=== PATIENT | female | born 1945 | race Two or more races ===

== ENCOUNTER 2018-05-31 22:56 | Inpatient (IN) | payer OTHER ==
[~2018-05-31] VITALS: Ht 157.5 cm; Wt 76.2 kg
[2018-05-31] MEDS ORDERED: Acetaminophen 500mg (ES) tab ORAL ONE (23:15)
--- NOTE | 2018-05-31 23:27 | Emergency Room Report ---
History of Present Illness General Chief Complaint: Chest Pain Source: Patient Present Illness HPI This 73-year-old female with history of high blood pressure. She presents with chief complaint of chest pain and body pain. Also with shaking. Onset for last few hours. Family called 911. They gave her aspirin and nitroglycerin without much relief. Patient does have a cough. Pain is all over. Achy in nature. Didn't complain of fever also. No nausea no vomiting. No diaphoresis. [place] like this may be a reaction to her medication. Allergies: Coded Allergies: No Known Allergies (Unverified , 05/31/18) Patient History Past Medical History: see triage record, old chart reviewed, HTN Past Surgical History: other Pertinent Family History: none Social History: Denies: smoking Now: No Immunizations: other Reviewed Nursing Documentation: PMH: Agreed; PSxH: Agreed Nursing Documentation-PMH Past Medical History: No History, Except For Hx Hypertension: Yes Review of Systems Constitutional: Reports: fever, weakness Eye: Denies: eye pain, blurred vision ENT: Denies: ear pain, nose congestion, throat swelling Respiratory: Reports: cough; Denies: shortness of breath Cardiovascular: Denies: chest pain, palpitations Gastrointestinal: Denies: abdominal pain, diarrhea, nausea, vomiting Musculoskeletal: Reports: joint pain, muscle pain; Denies: back pain Skin: Denies: rash Neurological: Denies: headache, numbness Endocrine: Denies: increased thirst, increased urine Hematologic/Lymphatic: Denies: easy bruising All Other Systems: negative except mentioned in HPI Physical Exam Vital Signs Date Time Temp Pulse Resp B/P (MAP) Pulse Ox O2 Delivery O2 Flow Rate FiO2 05/31/18 22:58 101.7 124 18 180/102 99 Room Air patient with fever and high blood pressure Sp02 EP Interpretation: reviewed, normal General Appearance: well appearing, no apparent distress, alert Head: normocephalic, atraumatic Eyes: bilateral eye PERRL, bilateral eye EOMI ENT: hearing grossly normal, normal pharynx Neck: full range of motion, supple, no meningismus Respiratory: chest non-tender, lungs clear, normal breath sounds Cardiovascular #1: regular rate, rhythm, no murmur Gastrointestinal: normal bowel sounds, non tender, no mass, no organomegaly, no bruit, non-distended Musculoskeletal: back normal, gait/station normal, normal range of motion Neurologic: alert, oriented x3 Psychiatric: anxious Skin: warm/dry Medical Decision Making Diagnostic Impression: Primary Impression: Chest pain Qualified Codes: R07.9 - Chest pain, unspecified Additional Impressions: Sepsis Qualified Codes: A41.9 - Sepsis, unspecified organism UTI (urinary tract infection) Qualified Codes: N30.00 - Acute cystitis without hematuria Anemia Qualified Codes: D64.9 - Anemia, unspecified ER Course Patient presents with chest pain. Atypical in nature. She does have risk factor with her age and high blood pressure. EKG is abnormal. Fever is probably secondary to UTI with possible sepsis. Antibiotics given. Will admit for further workup. I discussed the case with Dr. Kumar who will admit for Dr. Neri. Lab Results Impression labs unremarkable EKG Diagnostic Results Rate: tachycardiac Rhythm: NSR ST Segments: other - NSST changes Rhythm Strip Diag. Results Rhythm Strip Time: 23:27 EP Interpretation: yes Rate: 100 Rhythm: NSR, no PVC's, no ectopy Chest X-Ray Diagnostic Results Chest X-Ray Diagnostic Results : Chest X-Ray Ordered: Yes # of Views/Limited/Complete: 1 View Indication: Chest Pain EP Interpretation: Yes Interpretation: no consolidation, no effusion, no pneumothorax, no acute cardiopulmonary disease Impression: No acute disease Electronically Signed by: Dave Man MD Last Vital Signs Date Time Temp Pulse Resp B/P (MAP) Pulse Ox O2 Delivery O2 Flow Rate FiO2 05/31/18 22:58 101.7 124 18 180/102 99 Room Air Status: improved Disposition: ADMITTED INPATIENT Condition: Serious Scripts Unable to Obtain Active Prescriptions or Reported Meds Dave Man MD May 31, 2018 23:27
[2018-05-31 23:35] LABS: HEMATOCRIT 33.5 % (37.0-47.0); HEMOGLOBIN 11.1 G/DL (12.0-16.0); MEAN CORPUSCULAR VOLUME 75 FL (80-99); PLATELET COUNT 33 K/UL (150-450); RED BLOOD COUNT 4.45 M/UL (4.20-5.40); RED CELL DISTRIBUTION WIDTH 16.1 % (11.6-14.8); WHITE BLOOD COUNT 5.9 K/UL (4.8-10.8)
[2018-05-31 23:44] LABS: APPEARANCE,URINE CLEAR; BILIRUBIN, URINE NEGATIVE (NEGATIVE); COLOR,URINE PALE YELLOW; GLUCOSE, URINE (UA) NEGATIVE (NEGATIVE); KETONES,URINE NEGATIVE (NEGATIVE); LEUKOCYTE ESTERASE ,URINE 1+ (NEGATIVE); NITRITE,URINE NEGATIVE (NEGATIVE); PH,URINE 7 (4.5-8.0); PROTEIN,URINE NEGATIVE (NEGATIVE); UROBILINOGEN,URINE NORMAL MG/DL (0.0-1.0)
[2018-05-31 23:46] LABS: ANION GAP 10 mmol/L (5-15); BLOOD UREA NITROGEN 19 mg/dL (7-18); CALCIUM 9.7 MG/DL (8.5-10.1); CARBON DIOXIDE 24 MMOL/L (21-32); CHLORIDE 101 MMOL/L (98-107); CREATININE 0.9 MG/DL (0.55-1.30); POTASSIUM 4.5 MMOL/L (3.5-5.1); SODIUM 135 MMOL/L (136-145)
[2018-05-31 23:51] VITALS: BP 140/85
[2018-05-31 23:59] LABS: ALANINE AMINOTRANSFERASE 22 U/L (12-78); ALBUMIN 3.8 G/DL (3.4-5.0); ALBUMIN/GLOBULIN RATIO 0.9 (1.0-2.7); ALKALINE PHOSPHATASE 100 U/L (46-116); ASPARTATE AMINO TRANSFERASE 45 U/L (15-37); CKMB 0.9 NG/ML (0.0-3.6); CREATINE KINASE 138 U/L (26-308)
[2018-06-01] VITALS (7 sets, daily range): BP systolic 102–144; BP diastolic 55–85
[2018-06-01] MEDS ORDERED: cefTRIAXone 1 GM in NS 55 ML IVPB ONE ×2
[2018-06-01 05:00] LABS: HEMATOCRIT 32.5 % (37.0-47.0); HEMOGLOBIN 10.7 G/DL (12.0-16.0); MEAN CORPUSCULAR VOLUME 76 FL (80-99); RED BLOOD COUNT 4.25 M/UL (4.20-5.40); RED CELL DISTRIBUTION WIDTH 16.6 % (11.6-14.8)
[2018-06-01 05:16] LABS: ANION GAP 9 mmol/L (5-15); BLOOD UREA NITROGEN 14 mg/dL (7-18); CALCIUM 8.8 MG/DL (8.5-10.1); CARBON DIOXIDE 24 MMOL/L (21-32); CHLORIDE 107 MMOL/L (98-107); CREATININE 0.8 MG/DL (0.55-1.30); POTASSIUM 3.4 MMOL/L (3.5-5.1); SODIUM 140 MMOL/L (136-145)
[2018-06-01 05:29] LABS: PLATELET COUNT 220 K/UL (150-450)
--- NOTE | 2018-06-01 05:39 | Diagnostic Imaging Report ---
PORTABLE AP CXR: HISTORY: 73-year-old female with SOB. COMPARISON: None. FINDINGS: The lungs are grossly clear, allowing for technique. Heart size is within normal limits. No abnormal mediastinal widening. No obvious pneumothorax or effusion. Bones and chest wall soft tissues are grossly unremarkable. IMPRESSION: No acute abnormality identified.
--- NOTE | 2018-06-01 08:17 | History and Physical ---
History of Present Illness General Date patient seen: Jun 01, 2018 Time patient seen: 08:10 Reason for Hospitalization: Chest Pain Present Illness HPI Mr Rodriguez is a very pleasant 73 yo female with h/o htn, hld, gerd who presents with subjective fevers/headache/chest pain and dysuria. Patient was noted to have a uti in the ED and admitted for further management. Patient states she is feeling very weak. This started 2 days ago and has been getting worse. Denies any diarrhea/constipation. States chest pain is substernal, nonradiating, 3/10 in severity, denies sob or coughs. social hx: reviewed, denies smoking, alcohol or drug use. code status reviewed: FULL CODE med rec reviewed with patient and resumed during hospital stay Allergies: Coded Allergies: No Known Allergies (Unverified , 05/31/18) Medication History Unable to Obtain Active Prescriptions or Reported Meds Patient History History Provided By: Patient Healthcare decision maker Resuscitation status Full Code Advanced Directive on File No Family History Family History: Patient reports no known family medical history. Review of Systems Constitutional: Reports: chills, fever; Denies: no symptoms, see HPI, sweats, malaise, weakness, other Eye: Denies: no symptoms, see HPI, eye pain, blurred vision, tearing, double vision, nose pain, nose congestion, acuity changes, discharge, other ENT: Denies: no symptoms, see HPI, ear pain, ear discharge, nose pain, nose congestion, throat pain, throat swelling, mouth pain, hearing loss, nasal discharge, other Respiratory: Denies: no symptoms, see HPI, cough, orthopnea, shortness of breath, stridor, wheezing, GALO, sputum, other Cardiovascular: Reports: chest pain; Denies: no symptoms, see HPI, edema, palpitations, syncope, PND, other Gastrointestinal: Denies: no symptoms, see HPI, abdominal pain, constipation, diarrhea, nausea, vomiting, melena, hematemesis, other Genitourinary: Reports: dysuria, frequency; Denies: no symptoms, see HPI, discharge, hematuria, pain, retention, incontinence, urgency, vag bleed/dc, other Musculoskeletal: Denies: no symptoms, see HPI, back pain, gout, joint pain, joint swelling, muscle pain, muscle stiffness, other Skin: Denies: no symptoms, see HPI, rash, change in color, change in hair/nails , dryness, lesions, other Psychiatric: Denies: no symptoms, see HPI, prior hx, anxiety, depressed feelings, emotional problems, SI, HI, hallucinations, other Neurological: Reports: headache; Denies: no symptoms, see HPI, numbness, paresthesia, seizure, tingling, tremors, focal weakness, syncope, dizziness, other Endocrine: Denies: no symptoms, see HPI, excessive sweating, flushing, intolerance to temperature, increased thirst, increased urine, unexplained weight loss, other Hematologic/Lymphatic: Denies: no symptoms, see HPI, anemia, blood clots, easy bleeding, easy bruising, swollen glands, diathesis, other Physical Exam General Appearance: no apparent distress, alert Lines, tubes and drains: peripheral HEENT: normocephalic, atraumatic, mucous membranes moist Neck: non-tender, normal alignment, supple, normal inspection, abnormal alignment Respiratory/Chest: chest wall non-tender, lungs clear, normal breath sounds, no respiratory distress, no accessory muscle use Cardiovascular/Chest: normal peripheral pulses, normal rate, regular rhythm Abdomen: normal bowel sounds, non tender, soft Extremities: normal range of motion, non-tender, normal inspection, no calf tenderness Skin Exam: normal pigmentation, warm/dry 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, no motor/sensory deficits, alert, oriented x 3, responsive Musculoskeletal: normal muscle bulk Last 24 Hour Vital Signs Date Time Temp Pulse Resp B/P (MAP) Pulse Ox O2 Delivery O2 Flow Rate FiO2 06/01/18 04:00 80 06/01/18 04:00 98.1 80 18 129/82 (98) 97 06/01/18 01:40 Room Air 06/01/18 01:21 87 06/01/18 01:18 99.0 100 18 138/85 96 Room Air 100 06/01/18 01:15 98.2 97 18 133/76 (95) 96 06/01/18 00:18 99.0 14 134/78 99 Room Air 05/31/18 23:51 101.7 100 21 140/85 96 Room Air 05/31/18 23:51 100 21 05/31/18 22:58 101.7 124 18 180/102 99 Room Air Intake and Output 05/31/18 06/01/18 19:00 07:00 Intake Total 2155 ml Balance 2155 ml Intake Oral 100 ml IV Total 2055 ml Laboratory Tests Test 05/31/18 23:03 05/31/18 23:35 06/01/18 04:00 White Blood Count 5.9 K/UL (4.8-10.8) 9.0 K/UL (4.8-10.8) # Red Blood Count 4.45 M/UL (4.20-5.40) 4.25 M/UL (4.20-5.40) Hemoglobin 11.1 G/DL (12.0-16.0) L 10.7 G/DL (12.0-16.0) L Hematocrit 33.5 % (37.0-47.0) L 32.5 % (37.0-47.0) L Mean Corpuscular Volume 75 FL (80-99) L 76 FL (80-99) L Mean Corpuscular Hemoglobin 25.0 PG (27.0-31.0) L 25.1 PG (27.0-31.0) L Mean Corpuscular Hemoglobin Concent 33.2 G/DL (32.0-36.0) 32.9 G/DL (32.0-36.0) Red Cell Distribution Width 16.1 % (11.6-14.8) H 16.6 % (11.6-14.8) H Platelet Count 33 K/UL (150-450) L 220 K/UL (150-450) # Mean Platelet Volume 11.4 FL (6.5-10.1) H 7.1 FL (6.5-10.1) Neutrophils (%) (Auto) % (45.0-75.0) % (45.0-75.0) Lymphocytes (%) (Auto) % (20.0-45.0) % (20.0-45.0) Monocytes (%) (Auto) % (1.0-10.0) % (1.0-10.0) Eosinophils (%) (Auto) % (0.0-3.0) % (0.0-3.0) Basophils (%) (Auto) % (0.0-2.0) % (0.0-2.0) Sodium Level 135 MMOL/L (136-145) L 140 MMOL/L (136-145) Potassium Level 4.5 MMOL/L (3.5-5.1) 3.4 MMOL/L (3.5-5.1) L Chloride Level 101 MMOL/L (98-107) 107 MMOL/L (98-107) Carbon Dioxide Level 24 MMOL/L (21-32) 24 MMOL/L (21-32) Anion Gap 10 mmol/L (5-15) 9 mmol/L (5-15) Blood Urea Nitrogen 19 mg/dL (7-18) H 14 mg/dL (7-18) Creatinine 0.9 MG/DL (0.55-1.30) 0.8 MG/DL (0.55-1.30) Estimat Glomerular Filtration Rate mL/min (>60) mL/min (>60) Glucose Level 116 MG/DL (74-106) H 113 MG/DL (74-106) H Lactic Acid Level 1.90 mmol/L (0.4-2.0) Calcium Level 9.7 MG/DL (8.5-10.1) 8.8 MG/DL (8.5-10.1) Total Bilirubin 1.0 MG/DL (0.2-1.0) Aspartate Amino Transf (AST/SGOT) 45 U/L (15-37) H Alanine Aminotransferase (ALT/SGPT) 22 U/L (12-78) Alkaline Phosphatase 100 U/L (46-116) Total Creatine Kinase 138 U/L (26-308) Creatine Kinase MB 0.9 NG/ML (0.0-3.6) Creatine Kinase MB Relative Index 0.6 Troponin I 0.013 ng/mL (0.000-0.056) 0.013 ng/mL (0.000-0.056) Total Protein 7.9 G/DL (6.4-8.2) Albumin 3.8 G/DL (3.4-5.0) Globulin 4.1 g/dL Albumin/Globulin Ratio 0.9 (1.0-2.7) L Urine Color Pale yellow Urine Appearance Clear Urine pH 7 (4.5-8.0) Urine Specific [place] 1.010 (1.005-1.035) Urine Protein Negative (NEGATIVE) Urine Glucose (UA) Negative (NEGATIVE) Urine Ketones Negative (NEGATIVE) Urine Blood 2+ (NEGATIVE) H Urine Nitrite Negative (NEGATIVE) Urine Bilirubin Negative (NEGATIVE) Urine Urobilinogen Normal MG/DL (0.0-1.0) Urine Leukocyte Esterase 1+ (NEGATIVE) H Urine RBC 5-10 /HPF (0 - 2) H Urine WBC 5-10 /HPF (0 - 2) H Urine Squamous Epithelial Cells Moderate /LPF (NONE/OCC) H Urine Bacteria Few /HPF (NONE) Height (Feet): 5 Height (Inches): 2.00 Weight (Pounds): 168 Medications Current Medications Medications (Trade) Dose Ordered Sig/Osorio Route PRN Reason Start Time Stop Time Status Last Admin Dose Admin Acetaminophen (Tylenol) 650 mg Q6H PRN ORAL Mild Pain/Temp > 100.5 06/01/18 01:45 07/01/18 01:44 06/01/18 06:34 Ceftriaxone Sodium 1 gm/ Dextrose 55 ml @ 110 mls/hr Q24H IVPB 06/01/18 21:00 06/08/18 20:59 Enalapril Maleate (Vasotec) 20 mg EVERY 12 HOURS ORAL 06/01/18 09:00 07/01/18 08:59 Morphine Sulfate (Morphine Sulfate) 1 mg Q4H PRN IVP moderate to severe pain 06/01/18 01:30 06/08/18 01:29 Assessment/Plan Problem List: (1) Chest pain Assessment & Plan: midsternal chest pain ekg reviewed, nsr, no acute st t wave changes trop zx 1 neg, trend x 3 monasb tele monitor cxr reviewed, neg acute ICD Codes: R07.9 - Chest pain, unspecified SNOMED: 85525610 (2) GERD (gastroesophageal reflux disease) Assessment & Plan: ppi ICD Codes: K21.9 - Gastro-esophageal reflux disease without esophagitis SNOMED: 138422298 Qualifiers: Qualified Codes: K21.9 - Gastro-esophageal reflux disease without esophagitis (3) Essential hypertension Assessment & Plan: resume home acei ICD Codes: I10 - Essential (primary) hypertension SNOMED: 31745978 (4) UTI (urinary tract infection) Assessment & Plan: +LE on UA ceftriaxone pending final cx ICD Codes: N39.0 - Urinary tract infection, site not specified SNOMED: 59384971 Qualifiers: Qualified Codes: N30.00 - Acute cystitis without hematuria Status: stable Assessment/Plan ppx: heparin, scd diet: regular I have spend over 69 minutes regarding patient care and counseling and over 43 mintuies of face to face time with the patient Thank you Everardo Forte MD [facility] Everardo Forte MD Jun 01, 2018 08:17
[2018-06-01] MEDS ORDERED: Aspirin Baby 81mg NG SCH (09:00)
[2018-06-01] MEDS: Aspirin Baby 81mg ORAL SCH (09:26)
[2018-06-01] MEDS: Pantoprazole Inj IVP SCH (09:27)
[2018-06-01] MEDS: Morphine Sulfate 2mg/ml Inj IVP PRN ×2 (10:19→15:41)
[2018-06-01] MEDS: guaiFENesin ER 600mg tab ORAL SCH ×2 (14:20→15:00)
[2018-06-01] MEDS ORDERED: LORazepam 1mg tab ORAL PRN (16:45)
[2018-06-01] MEDS: LORazepam 1mg tab ORAL SCH ×2 (17:14→23:00)
[2018-06-01] MEDS: Atorvastatin 20mg tab ORAL SCH (20:25)
[2018-06-01] MEDS: cefTRIAXone 1 GM in D5W 55 ML IVPB SCH (20:25)
[2018-06-01] MEDS ORDERED: LORazepam 1mg tab ORAL SCH (23:00)
[2018-06-02] VITALS: BP 105/59
[2018-06-02 04:00] VITALS: BP 108/60
[2018-06-02] MEDS: LORazepam 1mg tab ORAL SCH (05:00)
[2018-06-02 06:39] LABS: BASOPHILS % (AUTO) 0.2 % (0.0-2.0); EOSINOPHILS % (AUTO) 1.4 % (0.0-3.0); HEMATOCRIT 32.4 % (37.0-47.0); HEMOGLOBIN 10.8 G/DL (12.0-16.0); LYMPHOCYTES % (AUTO) 16.1 % (20.0-45.0); MEAN CORPUSCULAR VOLUME 76 FL (80-99); MONOCYTES % (AUTO) 9.5 % (1.0-10.0); NEUTROPHILS % (AUTO) 72.7 % (45.0-75.0); PLATELET COUNT 190 K/UL (150-450); RED BLOOD COUNT 4.25 M/UL (4.20-5.40); RED CELL DISTRIBUTION WIDTH 16.7 % (11.6-14.8); WHITE BLOOD COUNT 5.8 K/UL (4.8-10.8)
[2018-06-02 06:55] LABS: ANION GAP 9 mmol/L (5-15); BLOOD UREA NITROGEN 11 mg/dL (7-18); CALCIUM 8.9 MG/DL (8.5-10.1); CARBON DIOXIDE 26 MMOL/L (21-32); CHLORIDE 107 MMOL/L (98-107); CREATININE 0.8 MG/DL (0.55-1.30); POTASSIUM 3.6 MMOL/L (3.5-5.1); SODIUM 142 MMOL/L (136-145)
[2018-06-02 08:00] VITALS: BP 122/66
[2018-06-02] MEDS: guaiFENesin ER 600mg tab ORAL SCH ×2 (08:48→17:34)
[2018-06-02] MEDS: Aspirin Baby 81mg ORAL SCH (08:48)
[2018-06-02] MEDS: Pantoprazole Inj IVP SCH (08:48)
[2018-06-02] MEDS ORDERED: 1/2 NS 1000ml IV ONE (10:52)
[2018-06-02] MEDS ORDERED: LORazepam 0.5mg tab ORAL SCH ×2 (11:00→21:00)
[2018-06-02 12:00] VITALS: BP 122/77
--- NOTE | 2018-06-02 12:42 | General Progress Note ---
Assessment/Plan Problem List: (1) Chest pain Assessment & Plan: midsternal chest pain ekg reviewed, nsr, no acute st t wave changes trop x 3 neg musculoskeletal pain resolved tele monitor cxr reviewed, neg acute ICD Codes: R07.9 - Chest pain, unspecified SNOMED: 39761174 (2) GERD (gastroesophageal reflux disease) Assessment & Plan: ppi ICD Codes: K21.9 - Gastro-esophageal reflux disease without esophagitis SNOMED: 912423684 Qualifiers: Qualified Codes: K21.9 - Gastro-esophageal reflux disease without esophagitis (3) Essential hypertension Assessment & Plan: resume home acei ICD Codes: I10 - Essential (primary) hypertension SNOMED: 68713486 (4) UTI (urinary tract infection) Assessment & Plan: +LE on UA ceftriaxone pending final cx ICD Codes: N39.0 - Urinary tract infection, site not specified SNOMED: 18449726 Qualifiers: Qualified Codes: N30.00 - Acute cystitis without hematuria (5) Weakness Assessment & Plan: due to uti feels very weak at this time, does not want to go home until tomorrow is stable when ambulating ICD Codes: R53.1 - Weakness SNOMED: 38733977 (6) Anxiety Assessment & Plan: continue ativan had anxiety attack last night but improved with ativan ICD Codes: F41.9 - Anxiety disorder, unspecified SNOMED: 57947222 Status: doing well, stable Assessment/Plan ppx: heparin, scd diet: regular I have spend over 49 minutes regarding patient care and counseling and over 30 mintuies of face to face time with the patient Thank you Everardo Forte MD [facility] Subjective Allergies: Coded Allergies: No Known Allergies (Unverified , 05/31/18) Subjective f/u uti, chest pain doing well states her chest pain has improved still gets anxiety attacks that improves with ativan feels very weak, doesnt want to go home today, feels better if she leaves tomorrow AM discussed with her and family to walk more today no fevers/chills ros: 12 point ros completed, negative except for the above Objective Last 24 Hour Vital Signs Date Time Temp Pulse Resp B/P (MAP) Pulse Ox O2 Delivery O2 Flow Rate FiO2 06/02/18 08:48 122/66 06/02/18 08:00 99.0 75 19 122/66 (84) 96 06/02/18 08:00 Room Air 06/02/18 07:41 74 06/02/18 04:00 70 06/02/18 04:00 98.2 70 20 108/60 (76) 95 06/02/18 00:00 97.9 77 20 105/59 (74) 95 06/02/18 00:00 80 06/01/18 21:00 Room Air 06/01/18 21:00 102/55 06/01/18 20:00 85 06/01/18 20:00 98.8 82 20 102/55 (71) 96 06/01/18 16:19 99.7 06/01/18 16:11 99.7 06/01/18 16:00 98.6 124 24 125/85 (98) 95 06/01/18 15:26 94 Intake and Output 06/01/18 06/02/18 19:00 07:00 Intake Total 600 ml Balance 600 ml Intake Oral 600 ml # Voids 3 Laboratory Tests 06/01/18 20:00: Troponin I 0.012 06/02/18 04:45: White Blood Count 5.8, Red Blood Count 4.25, Hemoglobin 10.8L, Hematocrit 32.4L , Mean Corpuscular Volume 76L, Mean Corpuscular Hemoglobin 25.4L, Mean Corpuscular Hemoglobin Concent 33.3, Red Cell Distribution Width 16.7H, Platelet Count 190, Mean Platelet Volume 7.4, Neutrophils (%) (Auto) 72.7, Lymphocytes (%) (Auto) 16.1L, Monocytes (%) (Auto) 9.5, Eosinophils (%) (Auto) 1.4, Basophils (%) (Auto) 0.2, Sodium Level 142, Potassium Level 3.6, Chloride Level 107, Carbon Dioxide Level 26, Anion Gap 9, Blood Urea Nitrogen 11, Creatinine 0.8, Estimat Glomerular Filtration Rate , Glucose Level 92, Calcium Level 8.9 Height (Feet): 5 Height (Inches): 2.00 Weight (Pounds): 168 General Appearance: no apparent distress, alert EENT: PERRL/EOMI, normal ENT inspection, TMs normal, pharynx normal Neck: non-tender, normal alignment, supple, normal inspection Cardiovascular: normal peripheral pulses, normal rate, regular rhythm Respiratory/Chest: chest wall non-tender, lungs clear, normal breath sounds, no respiratory distress, no accessory muscle use Abdomen: normal bowel sounds, non tender, soft, no organomegaly, no mass 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
[2018-06-02 16:00] VITALS: BP 117/64
[2018-06-02] MEDS ORDERED: LORazepam 0.5mg tab ORAL PRN (19:15)
[2018-06-02 20:00] VITALS: BP 132/70
[2018-06-02] MEDS: Atorvastatin 20mg tab ORAL SCH (21:28)
[2018-06-02] MEDS: cefTRIAXone 1 GM in D5W 55 ML IVPB SCH (21:28)
[2018-06-03] VITALS: BP 125/72
[2018-06-03 04:00] VITALS: BP 123/66
[2018-06-03 08:00] VITALS: BP 154/80
[2018-06-03] MEDS: Aspirin Baby 81mg ORAL SCH (09:06)
[2018-06-03] MEDS: guaiFENesin ER 600mg tab ORAL SCH (09:06)
[2018-06-03] MEDS: Pantoprazole Inj IVP SCH (09:06)
[2018-06-03 12:00] VITALS: BP 149/69
[2018-06-03] MEDS ORDERED: LEVOFLOXACIN750 MG ORAL (13:31)
--- NOTE | 2018-06-03 13:31 | Discharge Instructions ---
Discharge Instructions Discharge Instructions Follow up with: PCP in 1 week Call MD/Return to Hospital if: fevers, chills, nausea/vomiting/abdominal pain/ diarrhea Activity: resume normal activities For Congestive Heart Failure Reminder Report to your physician any weight gain of 5 pounds or more in one week. Everardo Forte MD Jun 03, 2018 13:31
--- NOTE | 2018-06-03 13:35 | Discharge Summary ---
Discharge Summary Hospital Course Date of Admission Jun 01, 2018 at 00:03 Date of Discharge 06/03/18 Admitting Diagnosis chest pain HPI Kalina Rodriguez is a 73 year old female who was admitted on Jun 01, 2018 at 00: 03 for Chest Pain h/o htn, hld, gerd who presents with subjective fevers/headache/chest pain and dysuria. Patient was noted to have a uti in the ED and admitted for further management. Patient states she is feeling very weak. This started 2 days ago and has been getting worse. Denies any diarrhea/constipation. States chest pain is substernal, nonradiating, 3/10 in severity, denies sob or coughs. social hx: reviewed, denies smoking, alcohol or drug use. trops remained neg. CP was muscular skeletal pain due to anxiety precipitated by UTI treated for UTI, did well, no growth on bcx dc home with PO levofloxacin for 7 days f/u with pcp in 1 week Physical Exam: General Appearance: no apparent distress, alert EENT: PERRL/EOMI, normal ENT inspection, TMs normal, pharynx normal Neck: non-tender, normal alignment, supple, normal inspection Cardiovascular: normal peripheral pulses, normal rate, regular rhythm Respiratory/Chest: chest wall non-tender, lungs clear, normal breath sounds, no respiratory distress, no accessory muscle use Abdomen: normal bowel sounds, non tender, soft, no organomegaly, no mass 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, no motor/sensory deficits, alert, oriented x 3, normal mood/affect I have spent over 48 minutes in the coordination of care and discharge planning for this patient Hospital Course (1) Chest pain Assessment & Plan: midsternal chest pain ekg reviewed, nsr, no acute st t wave changes trop x 3 neg musculoskeletal pain resolved tele monitor cxr reviewed, neg acute ICD Codes: R07.9 - Chest pain, unspecified SNOMED: 59508622 (2) GERD (gastroesophageal reflux disease) Assessment & Plan: ppi ICD Codes: K21.9 - Gastro-esophageal reflux disease without esophagitis SNOMED: 433767274 Qualifiers: Qualified Codes: K21.9 - Gastro-esophageal reflux disease without esophagitis (3) Essential hypertension Assessment & Plan: resume home acei ICD Codes: I10 - Essential (primary) hypertension SNOMED: 11448235 (4) UTI (urinary tract infection) Assessment & Plan: +LE on UA ceftriaxone pending final cx ICD Codes: N39.0 - Urinary tract infection, site not specified SNOMED: 31750272 Qualifiers: Qualified Codes: N30.00 - Acute cystitis without hematuria (5) Weakness Assessment & Plan: due to uti, improved ICD Codes: R53.1 - Weakness SNOMED: 57799402 (6) Anxiety Assessment & Plan: continue ativan had anxiety attack last night but improved with ativan ICD Codes: F41.9 - Anxiety disorder, unspecified SNOMED: 56746890 Status: doing well, stable Thank you Everardo Forte MD [facility] Discharge Medications New Medications: Levofloxacin* (Levofloxacin*) 750 Mg Tablet 750 MG ORAL DAILY for 7 Days, #7 TAB Discharge Condition Upon Discharge: stable Discharge Disposition Patient was discharged to Discharge Diagnoses: (1) Anxiety (2) Chest pain (3) UTI (urinary tract infection) (4) Essential hypertension (5) GERD (gastroesophageal reflux disease) (6) Weakness (7) Sepsis Discharge Instructions Discharge Instructions Follow up with: PCP in 1 week Call MD/Return to Hospital if: fevers, chills, nausea/vomiting/abdominal pain/ diarrhea Activity: resume normal activities Everardo Forte MD Jun 03, 2018 13:35
[2018-06-03] MEDS ORDERED: XANAX0.25 MG ORAL (14:55)
--- NOTE | 2018-06-05 14:10 | Cardiology Report ---
APPROVED REPORT EKG Measurement Heart [id number] Sinus tachycardia Abnormal ECG
== END 2018-06-03 15:24 | disposition home or self-care (01) | DRG 872 ==
LOC: EDBD 22:56 → EMR 23:29 → 2E 06-01 00:03 → EDBEDREQ 06-01 00:16
DX: A41.9 Sepsis, unspecified organism (principal); N39.0 Urinary tract infection, site not specified; R07.89 Other chest pain; K21.9 Gastro-esophageal reflux disease without esophagitis; I10 Essential (primary) hypertension; R53.1 Weakness; F41.9 Anxiety disorder, unspecified
CPT/HCPCS: 36415; 71045; 80048; 80053; 81003; 82550; 82553; 82962; 83605; 84484; 85025; 87040; 93005; 96361; 96365; 99285